=== PATIENT | female | born 1960 | race American Indian/Alaskan Native ===

== ENCOUNTER 2017-11-30 18:15 | Inpatient (IN) | payer SELFPAY ==
[2017-11-30] MEDS ORDERED: ASPIRIN PO ONE (18:34)
[2017-11-30 19:32] LABS: Basophils % (Auto) 0.8 % (0.0-1.8); Eosinophils % (Auto) 0.8 % (0.0-4.3); Hematocrit 37.8 % (30.3-42.9); Hemoglobin 12.7 gm/dl (10.1-14.3); Lymphocytes # (Auto) 1.9 K/mm3 (1.2-5.4); Mean Corpuscular HGB Conc 34 % (30-34); Mean Corpuscular Hemoglobin 31 pg (28-32); Mean Corpuscular Volume 93 fl (79-97); Monocytes # (Auto) 0.3 K/mm3 (0.0-0.8); Monocytes % (Auto) 8.1 % (0.0-7.3); Platelet Count 213 K/mm3 (140-440); Red Blood Count 4.07 M/mm3 (3.65-5.03)
[2017-11-30 19:45] LABS: BUN/Creatinine Ratio 12; Blood Urea Nitrogen 12 mg/dL (7-17); Calcium 9.6 mg/dL (8.4-10.2); Hemolysis Index 7
--- NOTE | 2017-11-30 20:24 | XRay Report ---
FINAL REPORT EXAM: XR CHEST ROUTINE 2V HISTORY: chest pain TECHNIQUE: PA and lateral views of the chest PRIORS: None. FINDINGS: Lines, tubes, and devices: N/A Lungs and pleura: Trachea is normal in position. Lungs are clear of infiltrate, pleural effusion, vascular congestion, or pneumothorax. Cardiomediastinal silhouette: Cardiac and mediastinal silhouettes are unremarkable. Other: Bony structures are intact. IMPRESSION: No acute cardiopulmonary process seen.
[2017-11-30] MEDS ORDERED: ZOFRAN IV ONE (23:31)
[2017-11-30] MEDS ORDERED: NITRO-BID 2% TP ONE (23:31)
[2017-11-30] MEDS ORDERED: MORPHINE IV ONE (23:31)
--- NOTE | 2017-11-30 23:36 | Emergency Department Report ---
HPI - General Chief Complaint: Chest Pain Time Seen by Provider: 11/30/17 23:10 - HPI HPI: Room 4 The patient is a 57-year-old female presenting with a chief complaint of chest pain. The patient states she's had intermittent substernal chest pain for one week. Patient describes the pain as a tightness. The patient states the pain then began radiating to her left upper extremity and left neck. Patient admits to diaphoresis with her chest pain but denies shortness of breath nausea or vomiting. The patient currently gets her pain score of 8/10. Patient states she's never had a stress test or cardiac catheterization Location: [See above] Duration: Intermittent times one week Quality: Tightness Severity: 8/10 Modifying factors: [see above] Context: [see above] Mode of transportation: [not driving] ED Past Medical Hx - Past Medical History Previous Medical History?: No - Surgical History Past Surgical History?: Yes Additional Surgical History: , right breast biopsy - Family History Family history: no significant - Social History Smoking Status: Never Smoker Substance Use Type: None (denies illicit drug use), Alcohol (rarely) ED Review of Systems ROS: Stated complaint: CHEST PAIN/DIZZINESS Other details as noted in HPI Constitutional: diaphoresis Eyes: denies: eye pain ENT: denies: throat pain Respiratory: denies: shortness of breath Cardiovascular: chest pain Endocrine: no symptoms reported Gastrointestinal: denies: nausea, vomiting Genitourinary: denies: dysuria Musculoskeletal: myalgia Neurological: denies: headache Physical Exam - Physical Exam Vital Signs: Vital Signs 11/30/17 18:29 Temperature 98.2 F Pulse Rate 67 Respiratory 18 Rate Blood Pressure 150/77 O2 Sat by Pulse 100 Oximetry Physical Exam: GENERAL: The patient is well-developed well-nourished female lying on stretcher appearing to be in mild discomfort. [] HEENT: Normocephalic. Atraumatic. Extraocular motions are intact. Patient has moist mucous membranes. NECK: Supple. Trachea midline CHEST/LUNGS: Clear to auscultation. There is no respiratory distress noted. HEART/CARDIOVASCULAR: Regular. There is no tachycardia. There is no gallop rub or murmur. 2+ left radial pulse ABDOMEN: Abdomen is soft, nontender. Patient has normal bowel sounds. There is no abdominal distention. SKIN: There is no rash. There is no edema. There is no diaphoresis. NEURO: The patient is awake, alert, and oriented. The patient is cooperative. The patient has normal speech MUSCULOSKELETAL: There is no tenderness or deformity of the left upper extremity. There is no evidence of acute injury. ED Course Vital Signs 11/30/17 18:29 Temperature 98.2 F Pulse Rate 67 Respiratory 18 Rate Blood Pressure 150/77 O2 Sat by Pulse 100 Oximetry ED Medical Decision Making - Lab Data Result diagrams: 11/30/17 19:14 11/30/17 19:14 Laboratory Tests 11/30/17 11/30/17 11/30/17 19:14 19:14 21:23 WBC 3.8 L RBC 4.07 Hgb 12.7 Hct 37.8 MCV 93 MCH 31 MCHC 34 RDW 13.0 L Plt Count 213 Lymph % (Auto) 50.0 H Warrick % (Auto) 8.1 H Eos % (Auto) 0.8 Baso % (Auto) 0.8 Lymph # 1.9 Warrick # 0.3 Eos # 0.0 Baso # 0.0 Seg Neutrophils % 40.3 Seg Neutrophils # 1.5 L Sodium 140 Potassium 4.6 Chloride 99.8 Carbon Dioxide 28 Anion Gap 17 BUN 12 Creatinine 1.0 Estimated GFR 58 BUN/Creatinine Ratio 12 Glucose 99 Calcium 9.6 Troponin T < 0.010 < 0.010 - EKG Data -: EKG Interpreted by Me EKG shows normal: sinus rhythm Rate: normal - EKG Data When compared to previous EKG there are: previous EKG unavailable Interpretation: nonspecific ST-T wave laron (T-wave inversion in lead aVL, V2) - Radiology Data Radiology results: image reviewed (chest x-ray) interpreted by me: Chest x-ray-no focal infiltrates, no pneumothorax - Differential Diagnosis ACS, GERD, pericarditis Critical care attestation.: If time is entered above; I have spent that time in minutes in the direct care of this critically ill patient, excluding procedure time. ED Disposition Clinical Impression: Chest pain Disposition: DC-09 OP ADMIT IP TO THIS HOSP Is pt being admited?: Yes Does the pt Need Aspirin: Yes Condition: Fair Instructions: Chest Pain (ED) Time of Disposition: 23:43 (hospitalist notified (Dr. Rosa Atkinson))
[2017-11-30] MEDS ORDERED: SODIUM CHLORIDE FLUSH SYRINGE 10 ML IV PRN (23:58)
[2017-11-30] MEDS ORDERED: TYLENOL PO PRN (23:58)
[2017-11-30] MEDS ORDERED: MORPHINE IV PRN (23:58)
[2017-11-30] MEDS ORDERED: ZOFRAN IV PRN (23:58)
--- NOTE | 2017-11-30 23:58 | History and Physical Report ---
History of Present Illness Date of examination: 11/30/17 History of present illness: 57-year-old woman but no medical problems comes emergency room complaints of chest pain in the left substernal area radiating to the left arm, neck over the last 1-2 weeks. She describes the pain as sharp, intermittent every 12:40 hour , intensity 5/ 10, worse when she does not eat, better with food. She denies nausea or vomiting, shortness breath, diaphoresis or palpitation, recent travel Review of systems Constitutional: no weight loss, chills, fever Ears, eyes, nose, mouth and throat: no nasal congestion, no nasal discharge, no sinus pressure, no vision change, no red eye. Neck: No neck pain or rigidity. Cardiovascular: no palpitations Respiratory: no cough, shortness of breath Gastrointestinal: no abdominal pain hematochezia Genitourinary : no frequency , no hematuria Musculoskeletal: no joint swelling or muscle ache Integumentary: no rash, no pruritis Neurological: no parathesias, no numbness, no focal weakness Endocrine: no cold or heat intolerance, no polyuria or polydipsia Hematologic/Lymphatic: no easy bruising, no easy bleeding, no gland swelling Allergic/Immunologic: no urticaria, no angioedema. PAST MEDICAL HISTORY: None PAST SURGICAL HISTORY: SOCIAL HISTORY: No alcohol, no drugs, tobacco FAMILY HISTORY: Hypertension Medications and Allergies Allergies Allergy/AdvReac Type Severity Reaction Status Date / Time No Known Allergies Allergy Verified 11/30/17 18:29 Exam - Physical Exam Narrative exam: Gen. appearance: Patient lying in bed, no apparent distress HEENT: Normocephalic, atraumatic, pupils equally round and reactive to light, extraocular movement intact, and no sclericterus,. No JVD or thyromegaly or nodule,neck supple, no carotid bruit ,mucous membranes moist, no exudate or erythema Heart: S1, S2, regular rate and rhythm Lungs: Clear bilaterally, breathing comfortable Abdomen: Positive bowel sounds, non-tender, nondistended, no organomegaly Extremity:no edema cyanosis, clubbing Skin: no rash, dry, warm Neuro: Oriented 3, cranial nerves II-12 intact, speech is fluent, motor and sensory intact - Constitutional Vitals: Temp Pulse Resp BP Pulse Ox 98.4 F 60 20 143/75 98 11/30/17 23:38 11/30/17 23:38 11/30/17 23:38 11/30/17 23:38 11/30/17 23:38 Results - Labs CBC & Chem 7: 11/30/17 19:14 11/30/17 19:14 Labs: Abnormal lab results 11/30/17 Range/Units 19:14 WBC 3.8 L (4.5-11.0) K/mm3 RDW 13.0 L (13.2-15.2) % Lymph % (Auto) 50.0 H (13.4-35.0) % Sully % (Auto) 8.1 H (0.0-7.3) % Seg Neutrophils # 1.5 L (1.8-7.7) K/mm3 - Imaging and Cardiology EKG: report reviewed Chest x-ray: report reviewed Assessment and Plan Assessment Chest pain, rule out ACS P amber admit to medicine Check cardiac enzymes, stress test IV morphine, DVT prophylaxis
[2017-12-01 00:58] LABS: Creatine Kinase MB < 1.0 ng/mL (0.0-4.0)
[2017-12-01 07:23] LABS: Hemoglobin 12.2 gm/dl (10.1-14.3); Mean Corpuscular HGB Conc 33 % (30-34); Mean Corpuscular Hemoglobin 31 pg (28-32); Mean Corpuscular Volume 93 fl (79-97); Platelet Count 199 K/mm3 (140-440); Red Blood Count 3.96 M/mm3 (3.65-5.03)
[2017-12-01 07:40] LABS: BUN/Creatinine Ratio 12; Blood Urea Nitrogen 12 mg/dL (7-17); Hemolysis Index 36
[2017-12-01 08:13] LABS: Creatine Kinase MB < 1.0 ng/mL (0.0-4.0)
[2017-12-01 08:56] LABS: Anisocytosis 1+; Basophils % (Manual) 0 % (0.0-1.8); Platelet Estimate Cons; Total Cells Counted 100
[2017-12-01] MEDS ORDERED: SODIUM CHLORIDE FLUSH SYRINGE 10 ML IV SCH (10:00)
[2017-12-01] MEDS ORDERED: LOVENOX SUB-Q SCH (10:00)
--- NOTE | 2017-12-01 10:15 | Discharge Summary ---
Providers - Providers Date of Admission: 11/30/17 23:58 Attending physician: ROJAS SHIELDS MD Primary care physician: [employer] Hospitalization Condition: Fair Disposition: DC-01 TO HOME OR SELFCARE Exam - Constitutional Vitals: Temp Pulse Resp BP Pulse Ox 98.1 F 57 L 15 125/73 100 12/01/17 09:50 12/01/17 09:50 12/01/17 09:50 12/01/17 09:50 12/01/17 09:50 Plan Activity: advance as tolerated Diet: low salt Special Instructions: record daily BP diary Follow up with: PRIMARY CAREMD [Primary Care Provider] - 7 Days
[2017-12-01] MEDS ORDERED: LEXISCAN IV ONE ×2 (11:03→11:48)
[2017-12-01 12:48] VITALS: BP 116/66
--- NOTE | 2017-12-02 09:49 | Treadmill Report ---
NUCLEAR CARDIAC IMAGING REPORT INDICATION FOR PROCEDURE: Chest pain. Informed consent was obtained. Resting nuclear cardiac images were performed 45-60 minutes following the intravenous administration of 10 mCi of technetium-99m Myoview. Stress images were subsequently performed 30-45 minutes following intravenous administration of 28 mCi of technetium 99m Myoview. Images were obtained in a 180-degree arc from 45 degrees HAHN to 45 degrees LPO. After data acquisition and reconstruction, the images were processed and reoriented into the vertical long, horizontal long, and horizontal short axis slices. The rotating planar images reviewed in cinematic format on the computer console. A polar color map of the horizontal short axis slices was generated and reviewed. Vasodilator stress was achieved with the intravenous administration of 0.4 mg of Lexiscan per protocol. Gated SPECT imaging demonstrates a left ventricular ejection fraction of 71% with normal wall motion. Myocardial perfusion imaging demonstrates no significant cavity change between stress and rest. No significant stress induced perfusion defects are seen. Nuclear cardiac imaging demonstrates grossly normal post-stress left ventricular systolic function with no significant evidence for myocardial ischemia or necrosis. JOB# [id number] JUAN/DELFINO
== END 2017-12-01 16:43 | disposition home or self-care (01) | DRG 313 ==
LOC: ED 18:15 → 4A 23:58 → UNDODISIN 12-01 11:03
PROVIDERS: ADMIT Internal Medicine; ATTEND Internal Medicine
DX: R07.9 Chest pain, unspecified (principal); Z82.49 Family history of ischemic heart disease and other diseases of the circulatory system; Z72.89 Other problems related to lifestyle
CPT/HCPCS: 36415; 71046; 78452; 80048; 82550; 82553; 84484; 85007; 85025; 85379; 93005; 93010; 93017; A9502; J2270; J2405; J2785